=== PATIENT | female | born 1985 | race Two or more races ===

== ENCOUNTER 2019-11-20 23:01 | Observation (INO) | payer MEDICAID ==
[~2019-11-20] VITALS: Ht 162.6 cm; Wt 79.0 kg
[2019-11-20 23:25] VITALS: BP 94/57
[2019-11-21] MEDS ORDERED: PREN1TAB78 PO (01:44)
== END 2019-11-21 02:32 | disposition home or self-care (01) ==
LOC: ER 23:01 → L&D 11-21 01:05
PROVIDERS: ADMIT Obstetrics & Gynecology; ATTEND Obstetrics & Gynecology
DX: Z03.818 Encounter for observation for suspected exposure to other biological agents ruled out (principal); O26.892 Other specified pregnancy related conditions, second trimester; O99.89 Other specified diseases and conditions complicating pregnancy, childbirth and the puerperium; O99.613 Diseases of the digestive system complicating pregnancy, third trimester; R10.9 Unspecified abdominal pain; R50.9 Fever, unspecified; R19.7 Diarrhea, unspecified; Z3A.26 26 weeks gestation of pregnancy
CPT/HCPCS: 99281; G0378; U0003; 99284